=== PATIENT | male | born 1935 | race Caucasian/White ===

== ENCOUNTER → 2017-04-08 | Day surgery (SDC) | payer OTHER ==
[2017-04-01 10:29] VITALS: Ht 177.8 cm; Wt 81.8 kg
[~2017-04-08] VITALS: Ht 177.8 cm; Wt 81.8 kg
[~2017-04-08] MED LIST: ALLO100T PO; ASPI81TA28 PO; CARV12.5 PO; CHOL200010 PO; CLOP1TAB5 PO; DUTA0.5C PO; ESCI1TAB6 PO; LEVO88TA PO; LIDOCAINE HCL 2% 2 ML VIAL (20MG/ML) ONE; LPT/40 PO; NTRGSL/4 UT; PROPOFOL IV EMULSION 10 MG/ML 20 ML VIAL IV ONE; QUET1TAB7 PO; REPA2TAB13 PO; SITA25TA PO; SODIUM CHLORIDE 0.9% 500ML 500 ML IV ONE; TAMS0.4C38 PO
--- NOTE | 2017-04-08 10:53 | Endo History and Physical ---
History & Physical Date of Service: Apr 08, 2017. Chief Complaint: Esophageal stricture Referring Physician: Dr Riggs History of Present Illness dysphagia Past Medical History Diabetes, ASHD, CABG, CHF, Thyroid Disease, Kidney Disease Past Surgical History Hx Cardiac Surgery: Yes (HEART CATH, NO STENTS; CABG X4 VESSELS) Hx Internal Defibrillator: No Hx Pacemaker: No Hx Abdominal Surgery: Yes (FRANNIE) Hx of Implantable Prosthesis: No Hx Post-Op Nausea and Vomiting: No Hx Cancer Surgery: No Hx Thoracic Surgery: No Hx Orthopedic: No Hx Urinary Tract Surgery: No Family History None Social History Smoking Status: Former Smoker Hx Substance Use: No Hx Alcohol Use: No Allergies Coded Allergies: Morphine (Verified Adverse Reaction, Unknown, CONFUSION, 04/01/17) Current Medications Reported Home Medications Medications Dose Route/Sig Max Daily Dose Days Date Category Dose Instructions Lexapro (Escitalopram Oxalate) 5 Mg Tab 5 Mg PO QAM 04/01/17 Reported Seroquel (Quetiapine Fumarate) 25 Mg Tab 25 Mg PO HS 04/01/17 Reported Coreg (Carvedilol) 12.5 Mg Tab 0.5 Tab PO BID 04/01/17 Reported Zyloprim (Allopurinol) 100 Mg Tab 100 Mg PO BID 04/14/16 Reported Nitrostat (Nitroglycerin) 0.4 Mg Tab 0.4 Mg UT PRN PRN 04/16/15 Reported Prandin (Repaglinide) 2 Mg Tab 1-3 Tabs PO UD 04/16/15 Reported PER [employer] Vitamin D (Cholecalciferol) 2,000 Unit Cap 2,000 Inter.unit PO QAM 04/16/15 Reported Plavix (Clopidogrel Bisulfate) 75 Mg Tab 75 Mg PO QAM 04/16/15 Reported Lipitor (Atorvastatin) 40 Mg Tab 40 Mg PO HS 04/16/15 Reported Avodart (Dutasteride) 0.5 Mg Cap 0.5 Mg PO QPM 04/16/15 Reported Flomax (Tamsulosin Hcl) 0.4 Mg Cap 0.4 Mg PO QPM 04/16/15 Reported Synthroid (Levothyroxine Sodium) 88 Mcg Tab 88 Mcg PO QPM 04/16/15 Reported Aspirin Ec (Aspirin) 81 Mg Tab 81 Mg PO QAM 04/16/15 Reported Januvia (Sitagliptin) 25 Mg Tab 25 Mg PO QAM 04/16/15 Reported Vital Signs Weight (Kilograms): 81.82 Height (Feet): 5 Height (Inches): 10 Date Time Temp Pulse Resp B/P (MAP) Pulse Ox O2 Delivery O2 Flow Rate FiO2 04/08/17 09:52 36.4 73 20 155/66 (95) 99 Room Air Physical Exam General Appearance: no apparent distress Respiratory/Chest: Auscultation: rhonchi Cardiovascular: Heart Auscultation: RRR Abdomen: Inspection & Palpation: soft Liver: non-tender Assessment and Plan stable for EGD
--- NOTE | 2017-04-08 11:29 | GI REPORT ---
Procedure Date: 04/08/2017 10:51 AM Procedure: Upper GI endoscopy Indications: Dysphagia Medicines: See the Anesthesia note for documentation of the administered medications Complications: No immediate complications. Estimated Blood Loss: Estimated blood loss: none. Procedure: Pre-Anesthesia Assessment: - Prior to the procedure, a History and Physical was performed, and patient medications, allergies and sensitivities were reviewed. The patient's tolerance of previous anesthesia was reviewed. - The risks and benefits of the procedure and the sedation options and risks were discussed with the patient. All questions were answered and informed consent was obtained. - Patient identification and proposed procedure were verified prior to the procedure by the physician and the nurse. The procedure was verified in the pre-procedure area. - Pre-procedure physical examination revealed no contraindications to sedation. - After reviewing the risks and benefits, the patient was deemed in satisfactory condition to undergo the procedure. After obtaining informed consent, the endoscope was passed under direct vision. Throughout the procedure, the patient's blood pressure, pulse, and oxygen saturations were monitored continuously. The scope was introduced through the mouth, and advanced to the third part of duodenum. The upper GI endoscopy was accomplished without difficulty. The patient tolerated the procedure well. Findings: LA Grade A (one or more mucosal breaks less than 5 mm, not extending between tops of 2 mucosal folds) esophagitis with no bleeding was found. The scope was withdrawn. Dilation was performed with a Howell dilator with mild resistance at 54 Fr. A small hiatus hernia was present. The examined duodenum was normal. The cardia and gastric fundus were normal on retroflexion. Impression: - LA Grade A reflux esophagitis. Dilated. - Small hiatus hernia. - Normal examined duodenum. - No specimens collected. Recommendation: - Discharge patient to home. Jose Maria M.D. Jose Maria MD 04/08/2017 11:29:37 AM This report has been signed electronically. Note Initiated On: 04/08/2017 10:51 AM I attest to the content of the Intraoperative Record and orders documented therein, exceptions below
--- NOTE | 2017-04-08 11:31 | Discharge Instructions ---
Endoscopy Patient Instructions Date / Procedure(s) Performed Apr 08, 2017. EGD Allergy Information Coded Allergies: Morphine (Verified Adverse Reaction, Unknown, CONFUSION, 04/01/17) Discharge Date / Findings Apr 08, 2017. mild esophagitis Provider Instructions Activity Restrictions - No exercising or heavy lifting for 24 hours. - Do not drink alcohol the day of the procedure. - Do not drive a car or operate machinery until the day after the procedure. - Do not make any important decisions or sign important papers in 24 hours after the procedure. Following Day: - Return to full activity which may include returning to work/school. Diet Start your diet with liquids and light foods (jello, soup, juice, toast). Then eat your usual diet if not nauseated. Treatment For Common After Affects For mild abdominal pain, bloating, or excessive gas: - Rest - Eat lightly - Lie on right side Follow-Up Information Follow-up with Dr Riggs as scheduled Anesthesia Information What You Should Know You have had a procedure that required some medicine to reduce anxiety and discomfort. This treatment is called moderate sedation. After receiving the treatment, you may be sleepy, but you will be able to breathe on your own. The effects of the treatment may last for several hours. Follow these instructions along with Activity/Diet recommendations noted above: * Do NOT do anything where dizziness or clumsiness would be dangerous. * Rest quietly at home today, then you can be up and about tomorrow. * Have a responsible person stay with you the rest of today. * You may have had an I.V. today. If so, you may take the dressing off later today. Recommendations Call your doctor if: * Trouble breathing * Continuous vomiting for more than 24 hours * Temperature above 101 degrees * Severe abdominal pain or bloating * Pain not relieved by pain medicine ordered * There is increased drainage or redness from any incision * A large amount of rectal bleeding greater than 2-3 tablespoons. (If you had a polyp/s removed or have hemorrhoids, a small amount of blood - from the rectum is to be expected.) * You have any unanswered questions or concerns. IN THE EVENT OF A SERIOUS EMERGENCY, GO TO THE NEAREST EMERGENCY ROOM Your discharge instructions were prepared by provider Jose Maria. Patient Instructions Signature Page [facility] Patient (or Guardian) Signature/Date: I have read and understand the instructions given to me by my caregivers. Caregiver/RN/Doctor Signature/Date: The above-named patient and/or guardian has received patient instructions on this date. + Original Patient Signature Page (only) stays with chart. Please make copy for patient.
[2017-04-08 11:48] VITALS: BP 127/56; PULSE 72; O2SAT 95
--- NOTE | 2017-04-08 11:50 | Anesthesiology Progress Note ---
Anesthesia Post Op Note Date & Time Apr 08, 2017 at 11:50 Vital Signs Pain Intensity: 0 Vital Signs Past 12 Hours Date Time Temp Pulse Resp B/P (MAP) Pulse Ox O2 Delivery O2 Flow Rate FiO2 04/08/17 11:48 72 20 127/56 (79) 95 Room Air 04/08/17 11:32 76 20 99/49 (66) 96 Room Air 04/08/17 11:18 67 18 102/44 (63) 94 Nasal Cannula 2 04/08/17 09:52 36.4 73 20 155/66 (95) 99 Room Air Notes Mental Status: alert / awake / arousable, participated in evaluation Pt Amnestic to Procedure: Yes Nausea / Vomiting: adequately controlled Pain: adequately controlled Airway Patency, RR, SpO2: stable & adequate BP & HR: stable & adequate Hydration State: stable & adequate Anesthetic Complications: no major complications apparent
== END | disposition home or self-care (01) ==
LOC: C.GI 09:22
PROVIDERS: ATTEND Internal Medicine Gastroenterology
DX: K22.2 Esophageal obstruction (principal); R13.10 Dysphagia, unspecified; E11.22 Type 2 diabetes mellitus with diabetic chronic kidney disease; N18.4 Chronic kidney disease, stage 4 (severe); Z95.1 Presence of aortocoronary bypass graft; Z87.891 Personal history of nicotine dependence; E07.9 Disorder of thyroid, unspecified; K44.9 Diaphragmatic hernia without obstruction or gangrene; K21.0 Gastro-esophageal reflux disease with esophagitis

== ENCOUNTER 2017-05-09 16:39 | Emergency (ER) | payer OTHER ==
[~2017-05-09] VITALS: Ht 180.3 cm; Wt 79.0 kg
[~2017-05-09 16:39] MED LIST changes: -LIDOCAINE HCL 2% 2 ML VIAL (20MG/ML) ONE; -PROPOFOL IV EMULSION 10 MG/ML 20 ML VIAL IV ONE; -SODIUM CHLORIDE 0.9% 500ML 500 ML IV ONE
[2017-05-09 16:54] VITALS: TEMP 36.5; Ht 180.3 cm; Wt 79.0 kg
--- NOTE | 2017-05-09 17:30 | EMERGENCY ROOM VISIT NOTE ---
History Report prepared by Nati: Radha Gilbert Under the Supervision of: Dr. Joseph Galdamez M.D. First contact with patient: 17:19 Chief Complaint: FALL Stated Complaint: FALL, HIT HEAD History of Present Illness The patient is a 81 year old male who presents to the Emergency Room with complaints of a fall happening shortly prior to arrival. The patient reports that he missed a step coming out of a restaurant, and he fell on concrete. He states that he hit his head on another concrete stair. The patient reports that he tried to stop himself from falling with his hands, but was unable to. The patient reports vomiting immediately after, but that he just ate. He denies a headache, shortness of breath, chest pain, and dizziness. He states that he was able to ambulate normally after the fall, and that he is not having symptoms currently. The patient states that for the last couple of years he has had intermittent light-headedness. He states that he has a history of open heart surgery, and that he is on blood thinners. Source of History: patient Onset: shortly prior to arrival Position: other (global) Quality: other (fall) Associated Symptoms: + vomiting, No headache, No chest pain, No SOB Review of Systems See HPI for pertinent positives and negatives. A total of ten systems were reviewed and were otherwise negative. Past Medical & Surgical Medical Problems: (1) Bifascicular block (2) BPH (benign prostatic hypertrophy) (3) CAD (coronary artery disease) (4) Carotid stenosis (5) Chest pain (6) Chronic combined systolic and diastolic heart failure (7) Diabetic retinopathy (8) DM type 2 (diabetes mellitus, type 2) (9) Dyslipidemia (10) History of renal calculi (11) Hyperparathyroidism due to renal insufficiency (12) Hypertension (13) Hypothyroidism (14) Ischemic cardiomyopathy (15) Kidney disease, chronic, stage IV (GFR 15-29 ml/min) (16) Mental disturbance (17) PVD (peripheral vascular disease) (18) Vitamin D deficiency Surgical Problems: (1) S/P CABG x 4 (2) S/P cardiac cath (3) S/P cystoscopy (4) s/p endovascular procedure (5) S/P inguinal hernia repair Family History Bladder cancer BROTHER Colon cancer BROTHER Heart disease FATHER MOTHER BROTHER Throat cancer BROTHER Social History Smoking Status: Former Smoker Alcohol Use: none Marital Status: Housing Status: lives with significant other Occupation Status: retired Current/Historical Medications Scheduled Allopurinol (Zyloprim), 100 MG PO BID Aspirin (Aspirin Ec), 81 MG PO QAM Atorvastatin (Lipitor), 40 MG PO HS Carvedilol (Coreg), 0.5 TAB PO BID Cholecalciferol (Vitamin D), 2,000 INTER.UNIT PO QAM Clopidogrel Bisulfate (Plavix), 75 MG PO QAM Dutasteride (Avodart), 0.5 MG PO QPM Escitalopram Oxalate (Lexapro), 5 MG PO QAM Levothyroxine Sodium (Synthroid), 88 MCG PO QPM Quetiapine Fumarate (Seroquel), 50 MG PO HS Repaglinide (Prandin), 1-3 TABS PO UD Sitagliptin (Januvia), 25 MG PO QAM Tamsulosin Hcl (Flomax), 0.4 MG PO QPM Scheduled PRN Nitroglycerin (Nitrostat), 0.4 MG UT PRN PRN for Chest Pain Allergies Coded Allergies: Morphine (Verified Adverse Reaction, Unknown, CONFUSION, 05/09/17) Physical Exam Vital Signs Date Time Temp Pulse Resp B/P (MAP) Pulse Ox O2 Delivery O2 Flow Rate FiO2 05/09/17 20:25 72 18 159/66 97 Room Air 05/09/17 19:29 71 05/09/17 19:06 69 23 141/54 98 Room Air 05/09/17 18:23 76 30 141/54 98 Room Air 05/09/17 18:23 97 Room Air 05/09/17 16:54 36.5 79 17 128/54 97 Physical Exam GENERAL: Awake, alert, well-appearing, in no distress HENT: Normocephalic, atraumatic. Oropharynx unremarkable. Dry mucous membranes. EYES: Normal conjunctiva. Sclera non-icteric. NECK: Supple. No nuchal rigidity. FROM. No JVD. RESPIRATORY: Clear to auscultation. CARDIAC: Regular rate, normal rhythm. Extremities warm and well perfused. Pulses equal. ABDOMEN: Soft, non-distended. No tenderness to palpation. No rebound or guarding. No masses. RECTAL: Deferred. MUSCULOSKELETAL: Chest examination reveals no tenderness. The back is symmetrical on inspection without obvious abnormality. There is no CVA tenderness to palpation. No joint edema. LOWER EXTREMITIES: Calves are equal size bilaterally and non-tender. No edema. No discoloration. NEURO: Normal sensorium. No sensory or motor deficits noted. SKIN: 1 cm abrasion of right upper forehead midline above right eyebrow. 1 cm superficial skin tear of the left lateral bridge of the nose. Skin tear of the lateral aspect of the mid right forearm. No rash or jaundice noted. Medical Decision & Procedures ER Provider Diagnostic Interpretation: X-ray: Per my interpretation, radiologist review. CHEST ONE VIEW PORTABLE HISTORY: 81 years-old Male CHEST PAIN acute atypical chest pain COMPARISON: Chest radiograph 04/21/2016, CT chest 04/17/2015 TECHNIQUE: Single AP view of the chest FINDINGS: Cardiac silhouette is mildly enlarged. Prior median sternotomy and CABG. No pneumothorax or pleural effusion. Persistent reticular opacities are noted within the bilateral lung bases are unchanged. 2.0 cm nodule in the right lower lobe. Unchanged dating back to chest CT 04/17/2015. No acute lobar pneumonia is seen. The bones are grossly intact. IMPRESSION: 1. Mild cardiomegaly without acute cardiopulmonary process. 2. Chronic bibasilar interstitial changes are noted in addition to unchanged 2.0 cm right lower lobe nodule, stable in size dating back to CT chest 04/17/2015. The above report was generated using voice recognition software. It may contain grammatical, syntax or spelling errors. Electronically signed by: Kwesi Milligan M.D. 05/09/2017 5:56 PM Dictated Date/Time: 05/09/2017 5:54 PM Radiology results as stated below per my review and radiologist interpretation: HEAD WITHOUT CONTRAST (CT) CLINICAL HISTORY: 81 years-old Male with headache fall. Acute headache status post fall. TECHNIQUE: Multiple axial CT images of the head were obtained without contrast. A dose lowering technique was utilized adhering to the principles of ALARA. CT DOSE: 1271.75 mGy.cm COMPARISON: CT head 04/21/2016. FINDINGS: No acute intracranial hemorrhage, midline shift, mass, large territorial ischemia or abnormal extra-axial collection. There is moderate cerebral atrophy. Ill-defined areas of low-attenuation are again seen within the subcortical, deep and periventricular white matter of the cerebral hemispheres bilaterally compatible with chronic microvascular ischemic changes. Focal areas of low attenuation within the basal ganglia are also unchanged suggesting chronic lacunar infarctions. The calvarium is intact. Polypoid mucosal thickening of the inferior left maxillary sinus is partially imaged. Trace left mastoid effusion. IMPRESSION: 1. No acute intracranial abnormality. 2. Atrophy with background chronic microvascular ischemic changes. 3. Polypoid mucosal thickening of the inferior left maxillary sinus, partially imaged. The above report was generated using voice recognition software. It may contain grammatical, syntax or spelling errors. Electronically signed by: Kwesi Milligan M.D. 05/09/2017 7:01 PM Dictated Date/Time: 05/09/2017 6:58 PM CERVICAL SPINE W/O CLINICAL HISTORY: 81 years-old Male with neck pain fall. Acute neck pain and headache status post fall COMPARISON: CT head of same day. TECHNIQUE: Multiple axial CT images of the cervical spine were obtained without contrast. A dose lowering technique was utilized adhering to the principles of ALARA. FINDINGS: 1.3 cm nuchal ligament calcification is noted at the level of C5-C6. Multilevel mostly moderate facet arthropathy is noted in conjunction with multilevel endplate spurring. Intervertebral disc space narrowing is noted at C5-C6. Degenerative changes are seen at the C1-C2 articulation. 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 There is mild polypoid mucosal thickening of the left maxillary sinus. Trace left mastoid effusion. There is no acute cervical spine fracture or subluxation identified. No high-grade central canal or foraminal narrowing identified, however sensitivity in evaluating the central canal and foramina is limited compared to that of MR. Prior median sternotomy. There is dense atherosclerotic plaquing of the bilateral carotid bulbs. Enlarged heterogeneous thyroid is noted. Partially imaged 1.2 x 0.6 cm groundglass nodule of the right upper lobe abutting the fissure is noted. Mild centrilobular emphysematous changes. IMPRESSION: 1. No acute cervical spine fracture or subluxation identified. 2. Multilevel uncovertebral spurring and mostly moderate facet arthropathy without severe intervertebral disc space narrowing, high-grade central canal or foraminal narrowing identified. 3. Partially imaged 1.2 cm groundglass opacity of the right upper lobe abutting the fissure is noted. Correlate with nonemergent follow-up CT of the chest. 4. Mild maxillary sinus disease. The above report was generated using voice recognition software. It may contain grammatical, syntax or spelling errors. Electronically signed by: Kwesi Milligan M.D. 05/09/2017 7:08 PM Dictated Date/Time: 05/09/2017 7:03 PM Laboratory Results 05/09/17 18:20 Red Blood Count 3.81, Mean Corpuscular Volume 97.9, Mean Corpuscular Hemoglobin 32.0, Mean Corpuscular Hemoglobin Concent 32.7, Mean Platelet Volume 11.4, Neutrophils (%) (Auto) 70.9, Lymphocytes (%) (Auto) 14.7, Monocytes (%) (Auto) 6.1, Eosinophils (%) (Auto) 7.0, Basophils (%) (Auto) 0.8, Neutrophils # (Auto) 4.38, Lymphocytes # (Auto) 0.91, Monocytes # (Auto) 0.38, Eosinophils # (Auto) 0.43, Basophils # (Auto) 0.05 05/09/17 18:20 Test 05/09/17 18:20 05/09/17 20:21 White Blood Count 6.18 K/uL (4.8-10.8) Red Blood Count 3.81 M/uL (4.7-6.1) Hemoglobin 12.2 g/dL (14.0-18.0) Hematocrit 37.3 % (42-52) Mean Corpuscular Volume 97.9 fL (80-100) Mean Corpuscular Hemoglobin 32.0 pg (25-34) Mean Corpuscular Hemoglobin Concent 32.7 g/dl (32-36) Platelet Count 133 K/uL (130-400) Mean Platelet Volume 11.4 fL (7.4-10.4) Neutrophils (%) (Auto) 70.9 % Lymphocytes (%) (Auto) 14.7 % Monocytes (%) (Auto) 6.1 % Eosinophils (%) (Auto) 7.0 % Basophils (%) (Auto) 0.8 % Neutrophils # (Auto) 4.38 K/uL (1.4-6.5) Lymphocytes # (Auto) 0.91 K/uL (1.2-3.4) Monocytes # (Auto) 0.38 K/uL (0.11-0.59) Eosinophils # (Auto) 0.43 K/uL (0-0.5) Basophils # (Auto) 0.05 K/uL (0-0.2) RDW Standard Deviation 49.4 fL (36.4-46.3) RDW Coefficient of Variation 13.9 % (11.5-14.5) Immature Granulocyte % (Auto) 0.5 % Immature Granulocyte # (Auto) 0.03 K/uL (0.00-0.02) Anion Gap 5.0 mmol/L (3-11) Est Creatinine Clear Calc Drug Dose 22.0 ml/min Estimated GFR () 23.5 Estimated GFR (Non- 20.2 BUN/Creatinine Ratio 12.3 (10-20) Calcium Level 8.3 mg/dl (8.5-10.1) Troponin I 0.040 ng/ml (0-0.045) Bedside Glucose 197 mg/dl (70-99) Laboratory results reviewed by me Medications Administered Medications (Trade) Dose Ordered Sig/Jo Route Start Time Stop Time Status Last Admin Dose Admin Sodium Chloride 500 ml @ 999 mls/hr Q31M STAT IV 05/09/17 17:34 05/09/17 18:04 DC 05/09/17 18:22 999 MLS/HR ECG Indication: weakness (fall) Rate (beats per minute): 73 Rhythm: sinus rhythm Findings: PVC, RBBB, no acute ischemic change, other (left anterior fascicular block) Change: no significant change ED Course 1720: The patient was evaluated in room C12B. A complete history and physical exam was performed. 1734: Ordered Sodium Chloride 500 ml @ 999 mls/hr IV. 2030: I reevaluated the patient. Discussed results and discharge instructions: He verbalized understanding and agreement. The patient is ready for discharge. Medical Decision I reviewed the patient's past medical history, medications, and the nursing notes as described above. Differentials include: mechanical fall, vasovagal orthostatic near syncope, intracranial hemorrhage, and concussion. The patient is an 81-year-old gentleman with a past medical history of CAD on aspirin and Plavix, end-stage renal disease on dialysis prescription emergency department after a mechanical fall when he misstepped going down a landing per history of present illness. Denies any loss of consciousness. There was a single episode of nausea and vomiting however the patient had just left dinner. Arrival the patient has superficial skin tears to the face, skin tear to the right forearm otherwise patient is neurologically intact and denies any complaints. CT head and cervical spine negative for any acute findings. Chest x-ray negative. Labs unremarkable. EKG unremarkable. Patient reassessed and continues to feel well ambulating at baseline. Findings and plan for follow-up d /w patient. Patient agreeable and d/c'd per discharge instructions. Medication Reconcilliation Current Medication List: was personally reviewed by me Blood Pressure Screening Patient's blood pressure: Normal blood pressure Impression Primary Impression: Closed head injury Scribe Attestation The scribe's documentation has been prepared under my direction and personally reviewed by me in its entirety. I confirm that the note above accurately reflects all work, treatment, procedures, and medical decision making performed by me. Departure Information Dispostion Home / Self-Care Referrals Alton Mcmillan M.D. (PCP) Forms HOME CARE DOCUMENTATION FORM, IMPORTANT VISIT INFORMATION Patient Instructions ED Head Injury Closed, My [facility] Additional Instructions Please follow up with your primary care physician in the next 1-3 days for re- evaluation. Otherwise, your exam, EKG, chest xray, CT scan, and lab results did not show signs of an emergent condition at this time. You did have incidental findings in your lungs on your imaging that should be reviewed with your doctor. Return to the emergency department for worsening symptoms as described in the accompanying instructions. CT scan of cervical spine. 1. No acute cervical spine fracture or subluxation identified. 2. Multilevel uncovertebral spurring and mostly moderate facet arthropathy without severe intervertebral disc space narrowing, high-grade central canal or foraminal narrowing identified. 3. Partially imaged 1.2 cm groundglass opacity of the right upper lobe abutting the fissure is noted. Correlate with nonemergent follow-up CT of the chest. 4. Mild maxillary sinus disease.
[2017-05-09] MEDS ORDERED: SODIUM CHLORIDE 0.9% 500ML 500 ML IV STA (17:34)
--- NOTE | 2017-05-09 17:58 | DIAGNOSTIC IMAGING REPORT ---
CHEST ONE VIEW PORTABLE HISTORY: 81 years-old Male CHEST PAIN acute atypical chest pain COMPARISON: Chest radiograph 04/21/2016, CT chest 04/17/2015 TECHNIQUE: Single AP view of the chest FINDINGS: Cardiac silhouette is mildly enlarged. Prior median sternotomy and CABG. No pneumothorax or pleural effusion. Persistent reticular opacities are noted within the bilateral lung bases are unchanged. 2.0 cm nodule in the right lower lobe. Unchanged dating back to chest CT 04/17/2015. No acute lobar pneumonia is seen. The bones are grossly intact. IMPRESSION: 1. Mild cardiomegaly without acute cardiopulmonary process. 2. Chronic bibasilar interstitial changes are noted in addition to unchanged 2.0 cm right lower lobe nodule, stable in size dating back to CT chest 04/17/2015. The above report was generated using voice recognition software. It may contain grammatical, syntax or spelling errors. Electronically signed by: Kwesi Milligan M.D. 05/09/2017 5:56 PM Dictated Date/Time: 05/09/2017 5:54 PM
[2017-05-09 18:23] VITALS: O2SAT 97
[2017-05-09 18:36] LABS: BASO % 0.8 %; BASO ABS # 0.05 K/uL (0-0.2); COMPLETE YES; HEMATOCRIT 37.3 % (42-52); IG% 0.5 %; LYMPH % 14.7 %; LYMPH ABS # 0.91 K/uL (1.2-3.4); MEAN CELL VOLUME 97.9 fL (80-100); MEAN CORPUSCULAR HGB CONC 32.7 g/dl (32-36); MEAN PLATELET VOLUME 11.4 fL (7.4-10.4); MONO % 6.1 %; NEUT % 70.9 %; PLATELET COUNT 133 K/uL (130-400); RED BLOOD COUNT 3.81 M/uL (4.7-6.1); WHITE BLOOD COUNT 6.18 K/uL (4.8-10.8)
[2017-05-09 18:52] LABS: BUN/CREATININE RATIO 12.3 (10-20); CALCIUM 8.3 mg/dl (8.5-10.1); CREATININE 2.8 mg/dl (0.60-1.40); POTASSIUM 4.2 mmol/L (3.5-5.1)
--- NOTE | 2017-05-09 19:02 | DIAGNOSTIC IMAGING REPORT ---
HEAD WITHOUT CONTRAST (CT) CLINICAL HISTORY: 81 years-old Male with headache fall. Acute headache status post fall. TECHNIQUE: Multiple axial CT images of the head were obtained without contrast. A dose lowering technique was utilized adhering to the principles of ALARA. CT DOSE: 1271.75 mGy.cm COMPARISON: CT head 04/21/2016. FINDINGS: No acute intracranial hemorrhage, midline shift, mass, large territorial ischemia or abnormal extra-axial collection. There is moderate cerebral atrophy. Ill-defined areas of low-attenuation are again seen within the subcortical, deep and periventricular white matter of the cerebral hemispheres bilaterally compatible with chronic microvascular ischemic changes. Focal areas of low attenuation within the basal ganglia are also unchanged suggesting chronic lacunar infarctions. The calvarium is intact. Polypoid mucosal thickening of the inferior left maxillary sinus is partially imaged. Trace left mastoid effusion. IMPRESSION: 1. No acute intracranial abnormality. 2. Atrophy with background chronic microvascular ischemic changes. 3. Polypoid mucosal thickening of the inferior left maxillary sinus, partially imaged. The above report was generated using voice recognition software. It may contain grammatical, syntax or spelling errors. Electronically signed by: Kwesi Milligan M.D. 05/09/2017 7:01 PM Dictated Date/Time: 05/09/2017 6:58 PM
--- NOTE | 2017-05-09 19:09 | DIAGNOSTIC IMAGING REPORT ---
CERVICAL SPINE W/O CLINICAL HISTORY: 81 years-old Male with neck pain fall. Acute neck pain and headache status post fall COMPARISON: CT head of same day. TECHNIQUE: Multiple axial CT images of the cervical spine were obtained without contrast. A dose lowering technique was utilized adhering to the principles of ALARA. FINDINGS: 1.3 cm nuchal ligament calcification is noted at the level of C5-C6. Multilevel mostly moderate facet arthropathy is noted in conjunction with multilevel endplate spurring. Intervertebral disc space narrowing is noted at C5-C6. Degenerative changes are seen at the C1-C2 articulation. 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 There is mild polypoid mucosal thickening of the left maxillary sinus. Trace left mastoid effusion. There is no acute cervical spine fracture or subluxation identified. No high-grade central canal or foraminal narrowing identified, however sensitivity in evaluating the central canal and foramina is limited compared to that of MR. Prior median sternotomy. There is dense atherosclerotic plaquing of the bilateral carotid bulbs. Enlarged heterogeneous thyroid is noted. Partially imaged 1.2 x 0.6 cm groundglass nodule of the right upper lobe abutting the fissure is noted. Mild centrilobular emphysematous changes. IMPRESSION: 1. No acute cervical spine fracture or subluxation identified. 2. Multilevel uncovertebral spurring and mostly moderate facet arthropathy without severe intervertebral disc space narrowing, high-grade central canal or foraminal narrowing identified. 3. Partially imaged 1.2 cm groundglass opacity of the right upper lobe abutting the fissure is noted. Correlate with nonemergent follow-up CT of the chest. 4. Mild maxillary sinus disease. The above report was generated using voice recognition software. It may contain grammatical, syntax or spelling errors. Electronically signed by: Kwesi Milligan M.D. 05/09/2017 7:08 PM Dictated Date/Time: 05/09/2017 7:03 PM
[2017-05-09 20:25] VITALS: BP 159/66; PULSE 72; O2SAT 97
== END 2017-05-09 20:55 | disposition home or self-care (01) ==
LOC: C.EDB 16:39 → C.EDC 20:55
DX: S09.90XA Unspecified injury of head, initial encounter (principal); W18.30XA Fall on same level, unspecified, initial encounter; Y92.511 Restaurant or cafe as the place of occurrence of the external cause; S00.81XA Abrasion of other part of head, initial encounter; S01.21XA Laceration without foreign body of nose, initial encounter; S51.811A Laceration without foreign body of right forearm, initial encounter; R91.1 Solitary pulmonary nodule; I45.2 Bifascicular block; R91.8 Other nonspecific abnormal finding of lung field; N40.0 Benign prostatic hyperplasia without lower urinary tract symptoms; I25.10 Atherosclerotic heart disease of native coronary artery without angina pectoris; I65.29 Occlusion and stenosis of unspecified carotid artery; I50.42 Chronic combined systolic (congestive) and diastolic (congestive) heart failure; E11.319 Type 2 diabetes mellitus with unspecified diabetic retinopathy without macular edema; E78.5 Hyperlipidemia, unspecified; E11.22 Type 2 diabetes mellitus with diabetic chronic kidney disease; N18.4 Chronic kidney disease, stage 4 (severe); I12.9 Hypertensive chronic kidney disease with stage 1 through stage 4 chronic kidney disease, or unspecified chronic kidney disease; N25.81 Secondary hyperparathyroidism of renal origin; E03.9 Hypothyroidism, unspecified; E55.9 Vitamin D deficiency, unspecified; I25.5 Ischemic cardiomyopathy; I73.9 Peripheral vascular disease, unspecified; Z79.01 Long term (current) use of anticoagulants; Z79.82 Long term (current) use of aspirin; Z95.1 Presence of aortocoronary bypass graft; Z87.891 Personal history of nicotine dependence; Z80.52 Family history of malignant neoplasm of bladder; Z80.0 Family history of malignant neoplasm of digestive organs; Z99.2 Dependence on renal dialysis